=== PATIENT | female | born 1995 | race Caucasian/White ===

== ENCOUNTER → 2016-10-03 | Outpatient (CLI) | payer BC | LOC: BHSO 14:56 | DX: F90.0 Attention-deficit hyperactivity disorder, predominantly inattentive type (principal) ==

== ENCOUNTER → 2017-01-19 | Outpatient (REF) | LOC: ZLAB.WCH 10:27 | DX: Z01.89 Encounter for other specified special examinations (principal) ==

== ENCOUNTER → 2018-01-20 | Outpatient (REF) | LOC: ZLAB.WCH 16:04 | DX: Z01.89 Encounter for other specified special examinations (principal) ==

== ENCOUNTER 2018-03-15 13:15 | Day surgery (SDC) | payer BC, OTHER ==
[~2018-03-15] VITALS: Ht 172.7 cm; Wt 115.8 kg
[2018-03-15] MEDS ORDERED: GLUCOPHAGE500 MG/TAB PO (13:47)
[2018-03-15] MEDS ORDERED: ADVIL200 MG PO (13:48)
[2018-03-15 14:00] VITALS: BP 134/83; PULSE 73; TEMP 98.3
[2018-03-15 16:15] VITALS: BP 98/73; PULSE 101; TEMP 98.3
[2018-03-15 16:41] VITALS: BP 101/83; PULSE 81
[2018-03-15 17:00] VITALS: BP 103/72; PULSE 85
[2018-03-15 17:28] VITALS: BP 131/98; PULSE 98
== END 2018-03-15 17:10 | disposition home or self-care (01) ==
LOC: SDCO 13:15
DX: K63.5 Polyp of colon (principal); D64.9 Anemia, unspecified
CPT/HCPCS: J2250; J3010; J7030